=== PATIENT | female | born 1965 | race Caucasian/White ===

== ENCOUNTER 2021-10-11 04:54 | Observation (INO) | payer MEDICAID, SELFPAY ==
[2021-10-11] MEDS ORDERED: Ketorolac Tromethamine 30 MG/ML VIAL ONE (05:17)
[2021-10-11 05:52] LABS: #Basophils 0.1 thou/uL (0.0-0.2); #Eosinphils 0.3 thou/uL (0.0-0.7); #Lymphocytes 2.9 thou/uL (1.20-3.40); #Monocytes 0.8 thou/uL (0.11-0.59); %Basophils 0.6 % (0.0-1.0); %Eosinophils 2.5 % (0.0-10.0); %Lymphocytes 26.1 % (21.0-51.0); %Monocytes 7.1 % (0.0-10.0); %Neutrophils 63.7 % (42.0-75.0); Hemoglobin 14.1 g/dL (12.0-16.0); Mean Corpuscular HGB CONC 32.2 g/dL (32.0-36.0); Mean Corpuscular Hemoglobin 31.1 pg (27.0-31.0); Mean Corpuscular Volume 96.5 fL (78.0-98.0); Mean Platelet Volume 6.3 fL (7.4-10.4); Platelet Count 329 thou/uL (130-400); RBC Distribution Width 12.1 % (11.5-14.5); Red Blood Cell (RBC) Count 4.54 mill/uL (4.20-5.40)
[2021-10-11 06:07] LABS: ALT (SGPT) 13 U/L (8-55); AST (SGOT) 17 U/L (5-34); Albumin 4.4 g/dL (3.5-5.0); Alkaline Phosphatase 89 U/L (40-110); Anion Gap 13 mmol/L (10-20); BUN (Urea Nitrogen) 16 mg/dL (9.8-20.1); Bilirubin, Total 0.3 mg/dL (0.2-1.2); Calc. Creatinine Clearance 0 mL/min (70-130); Calcium 9.4 mg/dL (7.8-10.44); Carbon Dioxide 27 mmol/L (22-29); Chloride 104 mmol/L (98-107); Globulin 3.6 g/dL (2.4-3.5); Glucose 105 mg/dL (70-105); Sodium 140 mmol/L (136-145)
[2021-10-11 06:11] LABS: Bilirubin Negative (Negative); Blood, Urine 1+ (Negative); Clarity Turbid (Clear); Glucose, Urine (Dipstick) Normal (Negative); Ketone, Urine Negative (Negative); Leukocyte 500 Leu/uL (Negative); Nitrite Negative (Negative); Protein, Urine (Dipstick) 70 mg/dL (Neg-Trace); Specific Gravity, Urine 1.017 (1.002-1.036); Squamous Epithelial 0-3 HPF (0-3); Urobilinogen Normal mg/dL (Less than 2); WBC/HPF Greater than 50 HPF (0-3); pH, Urine 5.5 (5.0-9.0)
[2021-10-11 06:38] LABS: Bacteria/HPF 2+ HPF (None Seen); Yeast-Budding None Seen HPF (None Seen)
[2021-10-11] MEDS ORDERED: cefTRIAXone\\ROCEPHIN 1 GM VIAL ONE (07:13)
[2021-10-11] MEDS ORDERED: Ondansetron PF 4 MG/2 ML Vial IVP PRN (08:02)
[2021-10-11] MEDS ORDERED: HYDROcodone/Acetaminophen 5/325 mg Tablet PO PRN (08:02)
[2021-10-11] MEDS ORDERED: diphenhydrAMINE 50 MG/ML VIAL IVP PRN (08:02)
[2021-10-11] MEDS ORDERED: Morphine 4 MG/ML VIAL SLOW IVP PRN (08:02)
[2021-10-11] MEDS ORDERED: Hyoscyamine Sulfate SL 0.125 mg Tablet SL PRN (08:02)
[2021-10-11] MEDS ORDERED: D5 1/2 NS w/20 mEq KCL 1,000 ML IV SCH (08:15)
[2021-10-11 09:00] LABS: SARS-CoV-2 NAA Rapid Test Not Detected (NotDetected)
[2021-10-11] MEDS ORDERED: Tamsulosin HCl 0.4 MG CAP PO SCH (09:00)
[2021-10-11] MEDS ORDERED: Ketorolac Tromethamine 30 MG/ML VIAL IVP SCH (12:00)
[2021-10-11] MEDS ORDERED: Iothalamate Meglumine 60% 50 ML VIAL FS ONE (14:37)
[2021-10-11] MEDS ORDERED: Midazolam HCl 2 mg/2 ml Vial ONE (14:40)
[2021-10-11] MEDS ORDERED: Fentanyl 250 MCG/5 ML VIAL ONE (14:41)
[2021-10-11] MEDS ORDERED: PROPOFOL 200 MG/20 ML VIAL ONE (14:54)
[2021-10-11] MEDS ORDERED: Lidocaine 1% PF 5 ML VIAL ONE (14:54)
[2021-10-11] MEDS ORDERED: Ondansetron PF 4 MG/2 ML Vial ONE (14:54)
[2021-10-11] MEDS ORDERED: Dexamethasone 20 MG/5 ML VIAL ONE (14:54)
[2021-10-11] MEDS ORDERED: Morphine 4 MG/ML VIAL ONE (16:24)
== END 2021-10-11 18:25 | disposition home or self-care (01) ==
LOC: ERS 04:54 → SDC 12:50 → SJJU 12:51 → SURG A 17:27
PROVIDERS: ADMIT Urology; ATTEND Urology
PROC: 0T768DZ Dilation of Right Ureter with Intraluminal Device, Via Natural or Artificial Opening Endoscopic (ICD-10-PCS; principal; 2021-10-11)
DX: N13.30 Unspecified hydronephrosis (principal); N13.4 Hydroureter; K76.89 Other specified diseases of liver; F17.210 Nicotine dependence, cigarettes, uncomplicated; Z20.822 Contact with and (suspected) exposure to COVID-19
CPT/HCPCS: 74176; 74420; 80053; 81003; 81015; 85025; 87077; 87086; 87186; 96365; 96375; C2617; G0378; J0696; J1100; J1885; J2250; J2270; J2405; J2704; J3010; Q9961-U8; U0002